=== PATIENT | male | born 1960 | race Two or more races ===

== ENCOUNTER 2020-02-07 08:35 | Emergency (ER) | payer MEDICAID ==
[~2020-02-07] VITALS: Ht 172.7 cm; Wt 85.0 kg
[2020-02-07] MEDS ORDERED: ACETAMINOPHEN 500MG TABLET PO ONE (09:30)
[2020-02-07] MEDS ORDERED: IBUPROFEN 800MG TABLET PO ONE (09:30)
[2020-02-07 09:56] LABS: CLARITY URINE CLEAR (CLEAR); COLOR URINE YELLOW (YELLOW); KETONES URINE TRACE (NEGATIVE); LEUKOCYTE ESTERASE URINE NEGATIVE (NEGATIVE); NITRITE URINE NEGATIVE (NEGATIVE); OCCULT BLOOD URINE NEGATIVE (NEGATIVE); PH URINE 5.5 (4.5-8.0); PROTEIN URINE NEGATIVE (NEGATIVE)
[2020-02-07 11:30] VITALS: BP 156/87
== END 2020-02-07 11:31 | disposition home or self-care (01) ==
LOC: ER 08:35
DX: K40.90 Unilateral inguinal hernia, without obstruction or gangrene, not specified as recurrent (principal); N43.3 Hydrocele, unspecified; I10 Essential (primary) hypertension
CPT/HCPCS: 76857; 76870; 81003; 93976; 99285